=== PATIENT | female | born 2000 | race Caucasian/White ===

== ENCOUNTER 2019-05-12 09:30 | Emergency (ER) | payer BC ==
[2019-05-12] MEDS ORDERED: BENZONATATE 100 MG CAPSULE PO ONE (09:41)
[2019-05-12] MEDS ORDERED: IBUPROFEN 600 MG TABLET PO ONE (09:42)
[2019-05-12] MEDS ORDERED: ACETAMINOPHEN 325 MG TABLET PO ONE (09:42)
--- NOTE | 2019-05-12 09:42 | ER Document Report ---
HPI - HPI Time Seen by Provider: 05/12/19 09:39 Notes: Otherwise healthy 18-year-old female presenting to the emergency department chief complaint of cough, congestion, fever and body aches for the last 3 days. Patient reports she believes she has a flu. Patient denies any nausea, vomiting or diarrhea. Patient has not taken any medications today, she states yesterday she took some Benadryl. Past Medical History - General Information source: Patient - Social History Smoking Status: Never Smoker Frequency of alcohol use: None Drug Abuse: None Family History: Reviewed & Not Pertinent - Medical History Medical History: Negative Vertical Provider Document - CONSTITUTIONAL Notes: PHYSICAL EXAMINATION: GENERAL: Well-appearing, well-nourished and in no acute distress. HEAD: Atraumatic, normocephalic. EYES: Pupils equal round and reactive to light, extraocular movements intact, conjunctiva are normal. ENT: Nares patent, oropharynx clear without exudates. Moist mucous membranes. NECK: Normal range of motion, supple without lymphadenopathy LUNGS: Breath sounds clear to auscultation bilaterally and equal. No wheezes rales or rhonchi. HEART: Regular rate and rhythm without murmurs ABDOMEN: Soft, nontender, nondistended abdomen. No guarding, no rebound. No masses appreciated. Female : deferred Musculoskeletal: Normal range of motion, no pitting or edema. No cyanosis. NEUROLOGICAL: Cranial nerves grossly intact. Normal speech, normal gait. Normal sensory, motor exams PSYCH: Normal mood, normal affect. SKIN: Warm, Dry, normal turgor, no rashes or lesions noted. Course - Re-evaluation Re-evalutation: Patient reports she feels much improved after administration of Tessalon Perles, acetaminophen and ibuprofen here in the emergency department. Patient will be discharged home at this time. - Vital Signs Vital signs: Temp Pulse Resp BP Pulse Ox 98.7 F 103 H 16 119/78 100 05/12/19 09:34 05/12/19 09:34 05/12/19 09:34 05/12/19 09:34 05/12/19 09:34 Discharge - Discharge Clinical Impression: Viral upper respiratory infection Condition: Stable Disposition: HOME, SELF-CARE Instructions: Upper Respiratory Illness ([facility]) Additional Instructions: Please take medications as prescribed. Please continue to take ibuprofen 600 mg every 6 hours. Please also take Tylenol 650 mg every 4 hours. This will help with your fever and body aches. Drink plenty of fluids, get plenty of rest. Return if worsening. Prescriptions: Benzonatate [Tessalon Perles 100 mg Capsule] 1 - 2 tab PO [id number] PRN #30 capsule PRN Reason: Prednisone [Deltasone 20 mg Tablet] 3 tab PO DAILY 5 Days #15 tablet Forms: Return to Work
[2019-05-12 10:22] LABS: A TYPE INFLUENZA AG NEGATIVE (NEGATIVE); B INFLUENZA AG NEGATIVE (NEGATIVE)
[2019-05-12 11:04] VITALS: BP 93/79
== END 2019-05-12 11:00 | disposition home or self-care (01) ==
LOC: ER 09:30
DX: J06.9 Acute upper respiratory infection, unspecified (principal); R05 Cough; R09.81 Nasal congestion; R50.9 Fever, unspecified; M79.10 Myalgia, unspecified site
CPT/HCPCS: 87804; 99283